=== PATIENT | male | born 1995 | race Caucasian/White ===

== ENCOUNTER 2018-06-07 12:02 | Emergency (ER) | payer OTHER ==
[~2018-06-07] VITALS: Ht 175.2 cm; Wt 53.1 kg
[~2018-06-07 12:02] MED LIST: BENADRYL25 M1 PO; CLARITIN10 MG PO; FLEXERIL10 MG PO; MOTRIN600 MG PO; PREDNICOT20 MG PO; VICODIN 5/500 505 MG PO; ZANTAC 150150 MG PO
[2018-06-07 12:03] VITALS: BP 138/83
[2018-06-07] MEDS ORDERED: NAPROSYN500 MG PO (12:38)
[2018-06-07] MEDS ORDERED: AMOXICILLIN500 M2 PO (12:38)
== END 2018-06-07 12:42 | disposition home or self-care (01) ==
LOC: ED 12:02
DX: K08.89 Other specified disorders of teeth and supporting structures (principal)

== ENCOUNTER 2018-07-26 19:09 | Emergency (ER) | payer OTHER ==
[~2018-07-26] VITALS: Ht 175.2 cm; Wt 54.0 kg
[~2018-07-26 19:09] MED LIST changes: +AMOXICILLIN500 M2 PO; +NAPROSYN500 MG PO
[2018-07-26 19:13] VITALS: BP 130/63
[2018-07-26] MEDS ORDERED: Motrin,Rufen800 MG PO (20:20)
== END 2018-07-26 20:25 | disposition home or self-care (01) ==
LOC: ED 19:09
DX: S66.911A Strain of unspecified muscle, fascia and tendon at wrist and hand level, right hand, initial encounter (principal); X58.XXXA Exposure to other specified factors, initial encounter; Y93.89 Activity, other specified; Y92.89 Other specified places as the place of occurrence of the external cause; Y99.8 Other external cause status

== ENCOUNTER → 2019-06-26 | Outpatient (CLI) | payer OTHER ==
[~2019-06-26] MED LIST changes: +Motrin,Rufen800 MG PO
[2019-06-26 09:59] LABS: BASO % 0.2 % (0.0-1.0); HEMATOCRIT 44.8 % (42.0-52.0); LYMPH # 1.6 10*3/uL (1.3-4.4); LYMPH % 38.8 % (27.0-41.0); MEAN CELL VOLUME 97.8 fl (80.0-94.0); MEAN CORPUSCULAR HGB 32.8 pg (27.0-31.0); MEAN CORPUSCULAR HGB CONC 33.5 g/dl (33.0-37.0); MEAN PLATELET VOLUME 9.8 fl (9.6-12.3); MONO # 0.4 10*3/uL (0.1-1.0); MONO % 10.6 % (3.0-9.0); NEUT % 49.2 % (47.0-73.0); PLATELET COUNT AUTOMATED 139 10*3/uL (130-400); RED BLOOD COUNT 4.58 10*6/uL (4.50-5.90); WHITE BLOOD COUNT 4.1 10*3/uL (4.8-10.8)
[2019-06-26 10:37] LABS: ALBUMIN 4.3 gm/dl (3.1-4.5); CHLORIDE 110 mmol/L (98-107); POTASSIUM 4.3 mmol/L (3.5-5.1); SODIUM 143 mmol/L (136-145)
[2019-06-26 10:49] LABS: ALKALINE PHOSPHATASE 76 U/L (45-117); BILIRUBIN, DIRECT 0.1 mg/dL (0.0-0.2); BUN 14 mg/dl (7-24); CHOLESTEROL 143 mg/dL (<200); CREATININE 0.97 mg/dL (0.70-1.30); HDL CHOLESTEROL 63 mg/dl (40-60); LDL CHOLESTEROL 70 mg/dL (9-159); SGOT/AST 17 IU/L (3-35); SGPT/ALT 26 U/L (12-78); THYROXINE (T4) TOTAL 5.9 ug/dl (4.5-12.1); TOTAL PROTEIN 7.5 gm/dL (6.4-8.2); TRIGLYCERIDES 48 mg/dl (<150); VLDL CHOLESTEROL 10 mg/dL (6-40)
== END | disposition home or self-care (01) ==
LOC: LAB 09:35
PROVIDERS: Family Medicine
DX: Z00.00 Encounter for general adult medical examination without abnormal findings (principal)

== ENCOUNTER 2019-08-16 12:13 | Emergency (ER) | payer OTHER ==
[~2019-08-16] VITALS: Ht 175.2 cm; Wt 56.7 kg
[2019-08-16 12:15] VITALS: BP 122/72
== END 2019-08-16 14:16 | disposition home or self-care (01) ==
LOC: ED 12:13
DX: R51 Headache (principal)

== ENCOUNTER 2021-03-03 17:08 | Emergency (ER) | payer OTHER ==
[~2021-03-03] VITALS: Ht 175.2 cm; Wt 54.4 kg
[2021-03-03 17:51] VITALS: BP 122/75
== END 2021-03-03 18:45 | disposition left against medical advice (07) ==
LOC: ED 17:08
DX: M54.9 Dorsalgia, unspecified (principal); Z53.21 Procedure and treatment not carried out due to patient leaving prior to being seen by health care provider; V43.52XA Car driver injured in collision with other type car in traffic accident, initial encounter; Y93.I9 Activity, other involving external motion; Y92.488 Other paved roadways as the place of occurrence of the external cause; Y99.8 Other external cause status

== ENCOUNTER 2021-10-07 17:43 | Emergency (ER) | payer SELFPAY ==
[~2021-10-07] VITALS: Wt 54.4 kg
[2021-10-07 17:59] VITALS: BP 132/76
[2021-10-07] MEDS ORDERED: NAPROSYN500 MG PO (19:19)
== END 2021-10-07 19:37 | disposition home or self-care (01) ==
LOC: ED 17:43
DX: S46.912A Strain of unspecified muscle, fascia and tendon at shoulder and upper arm level, left arm, initial encounter (principal); X50.1XXA Overexertion from prolonged static or awkward postures, initial encounter; Y93.89 Activity, other specified; Y92.89 Other specified places as the place of occurrence of the external cause; Y99.8 Other external cause status

== ENCOUNTER 2021-10-27 22:07 | Emergency (ER) | payer SELFPAY ==
[~2021-10-27] VITALS: Ht 175.2 cm; Wt 56.7 kg
[2021-10-27 22:12] VITALS: BP 132/76
[2021-10-28] MEDS ORDERED: ORPHENADRINE C100 M1 PO (02:59)
== END 2021-10-28 03:00 | disposition home or self-care (01) ==
LOC: ED 22:07
DX: S39.012A Strain of muscle, fascia and tendon of lower back, initial encounter (principal); X50.9XXA Other and unspecified overexertion or strenuous movements or postures, initial encounter; Y93.89 Activity, other specified; Y92.89 Other specified places as the place of occurrence of the external cause; Y99.8 Other external cause status